=== PATIENT | female | born 1965 | race Hispanic/Latino ===

== ENCOUNTER → 2017-08-31 | Day surgery (SDC) | payer OTHER ==
[~2017-08-31] MED LIST: ASPIRIN81 MG; DOK100 MG PO; FARXIGA PO; FENTANYL CITRATE/PF 100MCG/2 ML INJ ONE; FERROUS SULFAT325 MG PO; GLIPIZIDE ER10 MG; GLIPIZIDE ER5 MG PO; HYDRALAZINE HCL10 MG PO; Insulin Detemir SQ; LANTUS 3ML100 UNITS/ SC; LOVASTATIN40 MG PO; METOPROLOL SUCC50 MG PO; MIDAZOLAM HCL 2 MG/2 ML VIAL ONE; NIFEDIPINE ER30 M1 PO; OMEPRAZOLE40 MG PO; ONGLYZA5 MG PO; OR PHACO EYE KIT ONE; PIOGLITAZONE HC45 MG PO; PRAVASTATIN SOD80 MG PO; PREOP PHACO EYE KIT ONE; SENNA-S TABLET1 EA PO; ULTRACET TABLE1 EACH; ULTRAM 50MG50 MG PO; VASOTEC10 MG PO; VASOTEC5 MG PO
== END | disposition home or self-care (01) ==
LOC: OR 10:43
PROVIDERS: ATTEND Ophthalmology
DX: H25.12 Age-related nuclear cataract, left eye (principal); I10 Essential (primary) hypertension; E78.5 Hyperlipidemia, unspecified; E11.9 Type 2 diabetes mellitus without complications; R05 Cough; Z79.4 Long term (current) use of insulin; Z79.82 Long term (current) use of aspirin; Z86.73 Personal history of transient ischemic attack (TIA), and cerebral infarction without residual deficits
CPT/HCPCS: 36415; 66984; 81025; 82948; J2250; V2632

== ENCOUNTER → 2017-09-07 | Day surgery (SDC) | payer OTHER | END | disposition home or self-care (01) | LOC: OR 09:50 | PROVIDERS: ATTEND Ophthalmology | DX: H25.11 Age-related nuclear cataract, right eye (principal); E11.9 Type 2 diabetes mellitus without complications; G62.9 Polyneuropathy, unspecified; I10 Essential (primary) hypertension; E78.5 Hyperlipidemia, unspecified; Z79.82 Long term (current) use of aspirin; Z79.4 Long term (current) use of insulin | CPT/HCPCS: 36415; 66984; 82948; J2250; V2632 ==

== ENCOUNTER 2023-03-05 03:50 | Emergency (ER) | payer OTHER ==
[~2023-03-05] VITALS: Ht 160 cm; Wt 81.2 kg
[~2023-03-05 03:50] MED LIST changes: -FENTANYL CITRATE/PF 100MCG/2 ML INJ ONE; -MIDAZOLAM HCL 2 MG/2 ML VIAL ONE; -OR PHACO EYE KIT ONE; -PREOP PHACO EYE KIT ONE
[2023-03-05] MEDS ORDERED: ONDANSETRON HCL INJ 2MG/ML 2ML 2 MG/ML VIAL IV STA (04:25)
[2023-03-05] MEDS ORDERED: SODIUM CHLORIDE 0.9% 1000ML 1,000 ML IV ONE (04:30)
[2023-03-05 04:44] LABS: BASOPHILS % 0.4 % (0.0-1.0); EOSINOPHILS # (AUTO) 0.1 (0.0-0.4); EOSINOPHILS % 1.7 % (0.0-6.0); HEMATOCRIT 35.1 % (34.2-44.1); LYMPHOCYTES # (AUTO) 1.9 (1.0-3.2); LYMPHOCYTES % 27.2 % (18.0-39.1); MEAN CORPUSCULAR HEMOGLOBIN 27.8 pg (28-32); MEAN CORPUSCULAR HGB CONC 31.3 g/dL (31-35); MEAN CORPUSCULAR VOLUME 88.9 fL (81-99); MONOCYTES # (AUTO) 0.4 (0.2-0.8); MONOCYTES % 5.3 % (4.4-11.3); NEUTROPHILS # (AUTO) 4.5 (2.1-6.9); NEUTROPHILS % 64.4 % (38.7-80.0); PLATELET COUNT 440 x10e3/uL (140-360); RED BLOOD COUNT 3.95 x10e6/uL (3.6-5.1); RED CELL DISTRIBUTION WIDTH 13.6 % (11.7-14.4)
[2023-03-05] MEDS ORDERED: Morphine 2mg Syringe 2 MG/ML SYR IV ONE (04:45)
[2023-03-05 04:55] LABS: ALBUMIN 4.1 g/dL (3.5-5.0); ANION GAP 20.2 mmol/L (8-16); CREATININE, SERUM 1.75 mg/dL (0.57-1.11); POTASSIUM 4.2 mmol/L (3.5-5.1)
[2023-03-05 04:56] LABS: LIPASE 23 U/L (8-78)
[2023-03-05 04:58] LABS: CALCIUM 9.7 mg/dL (8.4-10.2)
[2023-03-05] MEDS ORDERED: METOPROLOL TARTRATE INJ 1 MG/ML VIAL IV ONE (05:00)
[2023-03-05] MEDS ORDERED: METOPROLOL TARTRATE INJ 1 MG/ML VIAL ONE (05:01)
[2023-03-05] MEDS ORDERED: PANTOPRAZOLE SO40 MG PO (05:55)
[2023-03-05] MEDS ORDERED: ONDANSETRON ODT4 MG PO (05:55)
[2023-03-05 06:34] VITALS: BP 137/84; PULSE 98; RESP 18; TEMP 98.3; O2SAT 99
== END 2023-03-05 06:20 | disposition home or self-care (01) ==
LOC: ER 03:55
DX: R11.2 Nausea with vomiting, unspecified (principal); K29.70 Gastritis, unspecified, without bleeding; R10.10 Upper abdominal pain, unspecified; I10 Essential (primary) hypertension; E11.65 Type 2 diabetes mellitus with hyperglycemia; E78.5 Hyperlipidemia, unspecified; K21.9 Gastro-esophageal reflux disease without esophagitis; R94.31 Abnormal electrocardiogram [ECG] [EKG]
CPT/HCPCS: 36415; 74176; 80053; 83690; 84484; 85025; 93005; 99284; C9113; J2270; J2405; J7030